=== PATIENT | female | born 1975 | race Caucasian/White ===

== ENCOUNTER 2018-09-25 16:35 | Emergency (ER) | payer MEDICAID ==
[~2018-09-25] VITALS: Ht 167.6 cm; Wt 88.9 kg
[2018-09-25 16:40] VITALS: Ht 167.6 cm; Wt 88.9 kg
[2018-09-25 18:02] LABS: BASOPHIL % 0.4 % (0-2); PLATELET COUNT 390 x10^3mcL (130-400)
[2018-09-25 18:03] LABS: RED CELL DISTRIBUTION WIDTH 17.6 % (11.5-14.5)
[2018-09-25 18:07] LABS: CALCIUM 9.5 mg/dL (8.5-10.1); CARBON DIOXIDE 28.5 mmol/L (21-32); CHLORIDE SERUM 99 mmol/L (98-107); CREATININE SERUM 0.7 mg/dL (0.6-1.0); GFR1 > 60 mL/min; GLUCOSE SERUM 132 mg/dL (74-106); POTASSIUM SERUM 3.4 mmol/L (3.5-5.1); SODIUM SERUM 137 mmol/L (136-145)
[2018-09-25 18:14] LABS: ALBUMIN 3.7 g/dL (3.4-5.0); ALKALINE PHOSPHATASE 78 U/L (46-116); ALT/SGPT 32 U/L (14-59); AST/SGOT 11 U/L (15-37); BILIRUBIN TOTAL 0.16 mg/dL (0.20-1.00)
[2018-09-25 18:15] LABS: TOTAL PROTEIN, SERUM 8.4 g/dL (6.4-8.2)
[2018-09-25 19:02] VITALS: BP 128/73
== END 2018-09-25 19:03 | disposition home or self-care (01) ==
LOC: ED 16:35
DX: G44.209 Tension-type headache, unspecified, not intractable (principal); R07.89 Other chest pain; I10 Essential (primary) hypertension
CPT/HCPCS: J1885

== ENCOUNTER 2018-10-02 14:57 | Emergency (ER) | payer MEDICAID ==
[~2018-10-02] VITALS: Ht 160 cm; Wt 89.0 kg
[2018-10-02 15:12] VITALS: Ht 160 cm; Wt 89.0 kg
[2018-10-02 17:33] VITALS: BP 130/75
== END 2018-10-02 17:45 | disposition home or self-care (01) ==
LOC: ED 14:57
DX: M79.604 Pain in right leg (principal); I10 Essential (primary) hypertension
CPT/HCPCS: J1885; Q0092

== ENCOUNTER 2019-01-24 19:53 | Emergency (ER) | payer SELFPAY ==
[~2019-01-24] VITALS: Ht 152.4 cm; Wt 88.5 kg
[2019-01-24 19:59] VITALS: Ht 152.4 cm; Wt 88.5 kg
[2019-01-25 01:16] VITALS: BP 108/74
== END 2019-01-25 01:16 | disposition home or self-care (01) ==
LOC: ED 19:53
DX: G43.909 Migraine, unspecified, not intractable, without status migrainosus (principal); H92.09 Otalgia, unspecified ear
CPT/HCPCS: J1885; J2765

== ENCOUNTER 2020-01-07 16:11 | Emergency (ER) | payer SELFPAY ==
[~2020-01-07] VITALS: Ht 157.5 cm; Wt 84.4 kg
[2020-01-07 16:17] VITALS: BP 151/89; Ht 157.5 cm; Wt 84.4 kg
== END 2020-01-07 17:42 | disposition left against medical advice (07) ==
LOC: ED 16:11
DX: Z53.21 Procedure and treatment not carried out due to patient leaving prior to being seen by health care provider (principal)